=== PATIENT | male | born 1960 | race Caucasian/White ===

== ENCOUNTER 2018-11-23 05:14 | Day surgery (SDC) | payer OTHER ==
[2018-11-14 11:49] LABS: BASOPHILS % (AUTO) 0.7 % (0-1); EOSINOPHILS # (AUTO) 0.3 X10'3 (0-0.9); EOSINOPHILS % (AUTO) 4.5 % (0-6); LYMPHOCYTES # (AUTO) 1.2 X10'3 (1.1-4.8); LYMPHOCYTES % (AUTO) 18.7 % (21-51); MEAN CORPUSCULAR HEMOGLOBIN 32.4 PG (27.0-31.0); MEAN CORPUSCULAR HGB CONC 33.6 g/dL (33.0-36.5); MEAN CORPUSCULAR VOLUME 96.4 FL (78-98); MEAN PLATELET VOLUME 7.8 FL (7.4-10.4); MONOCYTES # (AUTO) 0.6 X10'3 (0-0.9); MONOCYTES % (AUTO) 10.5 % (2-12); NEUTROPHILS % (AUTO) 65.6 % (42-75); PRE OP HEMATOCRIT 47.8 % (42.0-52.0); PRE OP HEMOGLOBIN 16.1 g/dL (14.0-17.9); PRE OP PLATELET COUNT 302 X10'3 (140-440); RED BLOOD COUNT 4.96 X10'6 (4.70-6.10); RED CELL DISTRIBUTION WIDTH 13.3 % (11.5-14.5)
[2018-11-14 12:02] LABS: PRE OP PROTIME 10.2 SECONDS (9.0-12.0)
[2018-11-14 12:05] LABS: ALBUMIN 3.7 G/DL (3.4-5.0); ALBUMIN/GLOBULIN RATIO 1.3 (1.1-1.5); ALKALINE PHOSPHATASE 91 IU/L (46-116); BLOOD UREA NITROGEN 17 MG/DL (7-18); BUN/CREATININE RATIO 15.7 (5.4-32.0); CHLORIDE 104 MMOL/L (99-107); CREATININE 1.08 MG/DL (0.60-1.10); PRE OP ALT 39 U/L (30-65); PRE OP ANION GAP 11 (8-16); PRE OP AST 18 U/L (10-37); PRE OP BILIRUB, TOTAL 0.4 MG/DL (0.0-1.0); PRE OP GLUCOSE 108 MG/DL (70-104); PRE OP POTASSIUM 4.5 MMOL/L (3.4-5.1); PRE OP SODIUM 139 MMOL/L (135-145); TOTAL CARBON DIOXIDE 24.5 MMOL/L (24-32); TOTAL PROTEIN 6.6 G/DL (6.4-8.2); eGFR 70 ML/MIN
[2018-11-23] VITALS (10 sets, daily range): BP systolic 106–147; BP diastolic 65–88
[~2018-11-23] VITALS: Ht 182.9 cm; Wt 98.1 kg
[~2018-11-23 05:14] MED LIST: LISI40TA4 PO; METO-539 PO; ringers solution, lacted 1,000 ML IV SCH
[2018-11-23] MEDS ORDERED: CLINDAmcin 900mg/NS 50ml IVPB 50 ML IV ONE (05:30)
[2018-11-23] MEDS ORDERED: DOCUMENT DATE & TIME OF BETA-BLOCKER PO ONE (05:30)
[2018-11-23] MEDS ORDERED: famotidine 20mg tablet PO ONE (05:30)
[2018-11-23] MEDS ORDERED: vancomycin inj 1,500 MG in normal saline 300ml IV soln IV ONE (05:30)
[2018-11-23] MEDS ORDERED: LIDOcaine 1% (10mg/ml) 2ml vial ONE (05:42)
[2018-11-23] MEDS ORDERED: BUPIVAcaine/PF 2.5mg/ml (0.25%) 10ml vial ONE (06:42)
[2018-11-23] MEDS ORDERED: sevoflurane 250ml liquid IH ONE (07:19)
[2018-11-23] MEDS ORDERED: fentaNYL /PF 50mcg/ml 5ml ampule ONE (07:24)
[2018-11-23] MEDS ORDERED: midazolam 2 mg/2 ml injection ONE (07:24)
[2018-11-23] MEDS ORDERED: propofol inj 20 ML IV ONE (07:25)
[2018-11-23] MEDS ORDERED: ketamine 50 mg/ml 10ml vial ONE (07:53)
[2018-11-23] MEDS ORDERED: ringers solution, lacted 1,000 ML IV SCH (08:17)
[2018-11-23] MEDS ORDERED: proCHLORperazine 10 MG/2 ml inj IV PRN (08:20)
[2018-11-23] MEDS ORDERED: meperidine/PF 25mg/ml syringe IV PRN ×3 (08:20)
[2018-11-23] MEDS ORDERED: ondansetron/PF 4mg/2ml inj IV PRN (08:20)
[2018-11-23] MEDS ORDERED: morphine 4 MG/ML inj SYRINge IV PRN ×2 (08:20)
[2018-11-23] MEDS ORDERED: ketorolac trometh. 30mg/ml inj. ONE (09:54)
--- NOTE | 2018-11-23 09:59 | NUR ---
Received from OR via [facility] , accompanied by Anesthesiologist MONICA and report given by Anesthesiolgist. PATIENT WITH 20G PIV IN LEFT UE RUNNING LR AT 100. LMA PRESENT. WILL CONTINUE TO ASSESS AND REMOVE WHEN AWAKE AND ABLE TO PROTECT OWN AIRWAY. LULU BANDAGE TO RIGHT WRIST SPLINT. Addendum: 11/23/18 at 1011 by Waqar Castro RN, RN Amended: Links added.
--- NOTE | 2018-11-23 11:19 | NUR ---
COVERED ALL DC INSTRUCTIONS WITH PATIENT. ALL DC CRITERIA HAS BEEN MET FOR DC. ASSISTED IN DRESSING PATIENT. INSTRUCTED ON ICE AND ELEVATION WRIST ABOVE ELBOW, ELBOW ABOVE HEART AND TO WIGGLE FINGERS. STATES HE WILL COMPLY. PATIENT STOOD TO WHEELCHAIR AND SAT ON OWN STRENGTH. IV OUT WITHOUT COMPLICATIONS. WHEELCHAIR TO PERSONAL VEHICLE WHERE ALLISON, PATIENT AND I SPOKE. PATIENT STATED HE HAS NAUSEA AND HIS ARM HURT. DISCUSSED WITH PATIENT THE OPTION TO GO BACK IN PACU, RESTART IV AND REST FOR A COUPLE MORE HOURS BASED ON DISCUSSION THAT PATIENTS FRIEND WILL ONLY BE AT HOUSE UNTIL 130. SHE STATED THAT HE WAS VERY NAUSEATED AFTER HIS LAST SURGERY. PATIENT VERY FLAT AFFECT IN THIS COVERSATION BUT SHE STATED THAT "HE'S VERY QUIET NORMALLY" AND THAT THIS IS HIS NORMAL AFFECT. PATIENT DECLINED NEED TO COME BACK TO PACU TO REST AND IT WAS DECIDED BETWEEEN HIM AND ALLISON THAT HOME WAS THE BEST OPTION. PATIENT ANTHONY FROM CHAIR AND SAT IN FRONT PASSENGER SEAT INDEPENDENTLY. SECURED WITH SEAT BELT. ALLISON STATED SHE WOULD DROP OFF PRESCRIPTION AND TAKE HIM HOME. I SUGGESTED CALLING A NEIGHBOR IF PATIENT UNABLE TO SAFELY GET IN HOME. ALLISON STATED THAT SHE FELT HE WOULD BE FINE AND TOOK PATIENT HOME. Addendum: 11/23/18 at 1144 by Waqar Castro RN, RN Amended: Links added.
== END 2018-11-23 11:19 | disposition home or self-care (01) ==
LOC: PAS 05:14
PROVIDERS: ATTEND Orthopaedic Surgery
DX: M19.031 Primary osteoarthritis, right wrist (principal); I10 Essential (primary) hypertension; Z87.891 Personal history of nicotine dependence; Z79.899 Other long term (current) drug therapy; Z88.0 Allergy status to penicillin; Z98.890 Other specified postprocedural states
CPT/HCPCS: 25800; 36415; 80053; 82948; 85025; 85610; 85730; 93005; A6223; A6449; C1713; J1885; J2250; J2704; J3010; J3370; J3490; J7120; A7000